=== PATIENT | female | born 1980 | race Caucasian/White ===

== ENCOUNTER 2021-11-12 01:21 | Emergency (ER) | payer OTHER ==
[~2021-11-12 01:21] MED LIST: COLACE 100MG C100 MG PO; KLONOPIN TAB 00.5 MG PO; NORCO 7.5-3251 EACH PO; TENORMIN 25 MG25 MG PO
[2021-11-12 02:13] LABS: BUN/CREATININE RATIO 18 (0-10)
[2021-11-12 02:59] LABS: HEMOGLOBIN 13.6 gm/dl (12.3-15.3); RED BLOOD COUNT 4.34 M/UL (4.00-5.10); WHITE BLOOD COUNT 10.2 K/UL (4.5-11.0)
== END 2021-11-12 05:09 | disposition home or self-care (01) ==
LOC: ER1 01:21
PROVIDERS: Physician Assistant
DX: T81.30XA Disruption of wound, unspecified, initial encounter (principal); Z90.710 Acquired absence of both cervix and uterus; Z20.822 Contact with and (suspected) exposure to COVID-19; Y84.8 Other medical procedures as the cause of abnormal reaction of the patient, or of later complication, without mention of misadventure at the time of the procedure
CPT/HCPCS: 80053; 85025; 96365; 96375; 99285; J1885; J2270; J2405; Q9967; U0002